=== PATIENT | female | born 1955 | race Caucasian/White ===

== ENCOUNTER → 2016-05-28 | Outpatient (CLI) | payer MEDICARE, OTHER ==
[~2016-05-28] MED LIST: CELE100C PO; DOXE25CA2 PO; PERC5TAB12 PO; SYMB80AE INH; ZOCO40TA PO
[2016-05-28 10:55] LABS: AUTOMATED NEUTROPHIL # 4.5 TH/MM3 (1.8-7.7); BASOPHIL % 0.4 % (0.0-2.0); EOSINOPHIL # 0.1 TH/MM3 (0-0.4); EOSINOPHIL % 1.3 % (0.0-4.0); HEMATOCRIT 40.5 % (35.0-46.0); HEMO FLAGS DIFF FINAL; LYMPH % 25.8 % (9.0-44.0); LYMPHOCYTE # 1.8 TH/MM3 (1.0-4.8); MEAN CELL VOLUME 89.5 FL (80.0-100.0); MEAN CORPUSCULAR HEMOGLOBIN 30.6 PG (27.0-34.0); MEAN CORPUSCULAR HGB CONC 34.2 % (32.0-36.0); NEUT % 64.5 % (16.0-70.0); PLATELET COUNT 229 TH/MM3 (150-450); RED BLOOD COUNT 4.53 MIL/MM3 (4.00-5.30); RED CELL DISTRIBUTION WIDTH 13.3 % (11.6-17.2); WHITE BLOOD COUNT 6.9 TH/MM3 (4.0-11.0)
[2016-05-28 11:24] LABS: ALT (GPT) 18 U/L (10-53); ANION GAP 8 MEQ/L (5-15); AST (GOT) 16 U/L (15-37); BICARBONATE 28.5 MEQ/L (21.0-32.0); BLOOD UREA NITROGEN 10 MG/DL (7-18); CHLORIDE 104 MEQ/L (98-107); GLOMERULAR FILTRATION RATE 77 ML/MIN (>89); GLUCOSE,FASTING 89 MG/DL (74-99); POTASSIUM 4.2 MEQ/L (3.5-5.1); SODIUM (NA) 140 MEQ/L (136-145)
[2016-05-28 11:29] LABS: ALKALINE PHOSPHATASE 71 U/L (45-117); HDL CHOLESTEROL 55.9 MG/DL (40.0-60.0); LDL CHOLESTEROL 98 MG/DL (0-99); TOTAL BILIRUBIN ADULT 0.3 MG/DL (0.2-1.0)
== END ==
LOC: CLAB 10:29
PROVIDERS: ATTEND Family Medicine
DX: E78.5 Hyperlipidemia, unspecified (principal)
CPT/HCPCS: 36415; 80053; 80061; 84443; 85025

== ENCOUNTER → 2017-03-27 | Day surgery (SDC) | payer MEDICARE, MEDICAID ==
--- NOTE | 2017-03-26 10:04 | MH ---
cc: HARDY OLSON M.D. DATE OF ADMISSION 03/27/2017 DATE OF 1955 CHIEF COMPLAINT Dysphagia. HISTORY OF PRESENT ILLNESS This is a 61-year-old female with a history of head and neck cancer post radiation therapy. She has problems with dysphagia and is to undergo esophageal dilation on multiple passes of soft rubber dilators. PAST MEDICAL HISTORY Significant for head and neck cancer. ALLERGIES No known drug allergies. MEDICATIONS Current meds: 1. Oxycodone. 2. Symbicort. PAST SURGICAL HISTORY Hysterectomy PHYSICAL EXAMINATION GENERAL: A well-developed, well-nourished female in no apparent distress. HEENT: Normocephalic, atraumatic. Extraocular motions intact. External ear canals clear. Lips, oral mucosa and oropharynx show no lesion. NECK: No masses. Gland shows no lesion. CHEST: Clear to auscultation. HEART: Regular rate. ABDOMEN: Soft. EXTREMITIES: No lesion. NEUROLOGIC: Nonfocal. ASSESSMENT A 61-year-old female post radiation therapy for head and neck cancer with dysphagia. She is to undergo esophageal dilation with multiple passes of soft rubber dilators. The risks and benefits were discussed with the patient. The risks include but are not limited to those of anesthesia, bleeding, unfavorable scarring, hematoma, abscess, infection, perforation, persistent dysphagia. The patient states she understands and accepts the risks of the procedure. MD IVAN Montana/ELVIA /9:13 AM /9:34 AM
[~2017-03-27] VITALS: Ht 165.1 cm; Wt 67.8 kg
[~2017-03-27] MED LIST changes: +ASPI81TA25 PO; +BUPR150XL PO; -CELE100C PO; +CHLORHEXIDINE GLUCONATE 2 % 1 PACK (2 CLOTHS) TOPICAL PRN; -DOXE25CA2 PO; +FOLI400T PO; +LACTATED RINGER'S 1000 ML IV PRN; +LIDOCAINE HCL 1% PF 5 ML SYRINGE OTHER ONE; +LOSA25TA PO; +METOPROLOL TARTRATE 25 MG TAB PO PRN; +MIRA25TA PO; +OXYC1TAB63 PO; -PERC5TAB12 PO; +POVIDONE IODINE 5% (ANTISEPSIS KIT) 4 APPLICATIONS EACH NARE PRN; +PROPOFOL 200 MG/20 ML AMP IV ONE; +SIMV40TA PO; +SODIUM CHLORID 0.9% 500 ML IV PRN; +SYMB160A INH; -SYMB80AE INH; +VITA200C3 PO; +VITA500S3 SL; +VITACAP7 PO; +XANA1TAB2 PO; -ZOCO40TA PO
[2017-03-27 08:12] LABS: AUTOMATED NEUTROPHIL # 4.5 TH/MM3 (1.8-7.7); BASOPHIL % 0.5 % (0.0-2.0); EOSINOPHIL # 0.1 TH/MM3 (0-0.4); EOSINOPHIL % 1.4 % (0.0-4.0); HEMATOCRIT 40.6 % (35.0-46.0); HEMOGLOBIN 13.6 GM/DL (11.6-15.3); LYMPH % 23.7 % (9.0-44.0); LYMPHOCYTE # 1.6 TH/MM3 (1.0-4.8); MEAN CELL VOLUME 92.4 FL (80.0-100.0); MEAN CORPUSCULAR HGB CONC 33.6 % (32.0-36.0); MEAN PLATELET VOLUME 7.7 FL (7.0-11.0); MONO % 9.6 % (0.0-8.0); MONOCYTE # 0.7 TH/MM3 (0-0.9); NEUT % 64.8 % (16.0-70.0); PLATELET COUNT 225 TH/MM3 (150-450); RED BLOOD COUNT 4.39 MIL/MM3 (4.00-5.30); WHITE BLOOD COUNT 6.9 TH/MM3 (4.0-11.0)
--- NOTE | 2017-03-27 09:24 | EKG ---
Date Performed: 03/27/2017 Time Performed: 08:07:08 PTAGE: 61 years EKG: Sinus rhythm LOW QRS VOLTAGE IN PRECORDIAL LEADS BORDERLINE ECG NO PREVIOUS TRACING DOCTOR: Ernie Salvador Interpretating Date/Time 03/27/2017 09:23:35
--- NOTE | 2017-03-27 10:27 | MP ---
cc: HARDY OLSON DATE OF SURGERY 03/27/2016 DATE OF 1955 INDICATIONS This is a 61-year-old female with a history of neck cancer post radiation treatment has dysphagia. She is to undergo esophageal dilation with soft rubber dilators multiple passes. PREOPERATIVE DIAGNOSIS Dysphagia POSTOPERATIVE DIAGNOSIS Dysphagia PROCEDURE Esophageal dilation, multiple passes soft rubber dilators. SUMMARY The patient brought to the operating room, placed in the supine position, successfully placed under general anesthesia and prepared in the usual fashion for this procedure. The head and neck was palpated. There was no palpable mass. Then with the rubber dilators from 40-50 Israeli in sequence, patient underwent dilation. There was appropriate resistance. There was no bleeding, no evidence of perforation. She tolerated this well. She was awake and taken to recovery in stable condition. MD IVAN Montana/REECE /10:03 AM /10:05 AM
[2017-03-27 10:47] VITALS: BP 137/81; PULSE 70; RESP 18; TEMP 97.6; O2SAT 100
== END | disposition home or self-care (01) ==
LOC: HSDC 07:18
PROVIDERS: ATTEND Specialist
DX: R13.10 Dysphagia, unspecified (principal); I10 Essential (primary) hypertension; J44.9 Chronic obstructive pulmonary disease, unspecified; Z85.818 Personal history of malignant neoplasm of other sites of lip, oral cavity, and pharynx; Z92.3 Personal history of irradiation
CPT/HCPCS: 00320; 43450; 85025; 93005; J7120

== ENCOUNTER 2017-04-27 10:12 | Emergency (ER) | payer MEDICARE, MEDICAID ==
[~2017-04-27 10:12] MED LIST changes: -CHLORHEXIDINE GLUCONATE 2 % 1 PACK (2 CLOTHS) TOPICAL PRN; -LACTATED RINGER'S 1000 ML IV PRN; -LIDOCAINE HCL 1% PF 5 ML SYRINGE OTHER ONE; -METOPROLOL TARTRATE 25 MG TAB PO PRN; -POVIDONE IODINE 5% (ANTISEPSIS KIT) 4 APPLICATIONS EACH NARE PRN; -PROPOFOL 200 MG/20 ML AMP IV ONE; -SODIUM CHLORID 0.9% 500 ML IV PRN
[2017-04-27 10:15] VITALS: BP 182/82; PULSE 91; RESP 16; TEMP 97.9; O2SAT 97
[2017-04-27] MEDS ORDERED: FLUT55AE INH (10:24)
--- NOTE | 2017-04-27 10:27 | PD ---
HPI Chief Complaint: Injury Time Seen by Provider: 10:20 Travel History International Travel<30 days: No Contact w/Intl Traveler<30days: No Traveled to known affect area: No History of Present Illness HPI This is a 61-year-old female who presents to the emergency department with pain in the left ankle following a fall. Patient was doing marching exercises yesterday and her left ankle gave out and she fell on top of it and twisted it. She has moderate severity pain in the left ankle and the left foot, constant with no associated numbness or weakness. Patient denies any other injuries. PFSH Past Medical History Arthritis: Yes Anxiety: Yes Depression: Yes Cancer: Yes (TONSIL CANCER WITH RADIATION) Cardiovascular Problems: Yes (PVD) High Cholesterol: Yes Diabetes: No Diminished Hearing: No Endocrine: No Genitourinary: Yes (FREQUENCY) Hiatal Hernia: No Immune Disorder: No Musculoskeletal: Yes (OA) Neurologic: No Psychiatric: Yes (ANXIETY) Reproductive: No Respiratory: No Immunizations Current: Yes Thyroid Disease: No Menopausal: Yes : 1 Para: 0 Past Surgical History Abdominal Surgery: Yes (APPENDECTOMY) AICD: No Cardiac Surgery: Yes (LEG VEIN STRIPPING) Ear Surgery: No Endocrine Surgery: No Eye Surgery: No Genitourinary Surgery: No Gynecologic Surgery: Yes (HYSTERECTOMY) Hysterectomy: Yes Joint Replacement: No Oral Surgery: No Pacemaker: No Thoracic Surgery: No Social History Alcohol Use: No Tobacco Use: Yes Substance Use: No Allergies-Medications (Allergen,Severity, Reaction): Coded Allergies: No Known Allergies (Unverified Allergy, Unknown, 03/27/17) Reported Meds & Prescriptions Reported Meds & Active Scripts Active Reported [place] Respiclick Inh (Fluticasone Propionate) 55 Mcg/Actuation Aer.pow.ba 55 Mg INH DAILY Folic Acid 0.4 Mg Tab 400 Mcg PO DAILY Vitamin E 200 Unit Cap 200 Units PO DAILY Vitamin B-12 (Cyanocobalamin) 500 Mcg Subl 500 Mcg SL DAILY B Complex (B-Complex Vitamins) 1 Cap 1 Cap PO DAILY Xanax (Alprazolam) 1 Mg Tab 1 Mg PO Q8H PRN Symbicort Inh (Budesonide/Formoterol Fumarate) 160-4.5 Mcg/Act Aero 1 Puff INH Q12HR Aspirin Low Dose (Aspirin) 81 Mg Tabdr 81 Mg PO DAILY Oxycodone-Acetaminophen 5-325 mg Tab 1 Tab PO Q6H PRN Simvastatin 40 Mg Tab 40 Mg PO HS Losartan (Losartan Potassium) 25 Mg Tab 25 Mg PO DAILY Wellbutrin Xl 24 HR (Bupropion HCl) 150 Mg Tab 150 Mg PO TID Myrbetriq (Mirabegron) 25 Mg Tab 25 Mg PO DAILY Review of Systems General / Constitutional: No: Fever, Chills Gastrointestinal: No: Nausea, Vomiting Physical Exam Narrative GENERAL: Well-appearing, no acute distress, nontoxic SKIN: Warm and dry. HEAD: Atraumatic. Normocephalic. ENT: No nasal bleeding or discharge. Moist mucous membranes MUSCULOSKELETAL: Mild effusion involving the left ankle, tender to palpation over the posterior and anterior aspect of the lateral malleolus involving the left ankle. Tender to palpation over the dorsal aspect of the left foot. Vascular: 2+ DP pulse with normal capillary refill in the left foot. NEUROLOGICAL: Awake and alert. No obvious cranial nerve deficits. Motor grossly within normal limits. Normal speech. Sensation to light touch grossly intact in the left foot. PSYCHIATRIC: Appropriate mood and affect; insight and judgment normal. Data Data Last Documented VS Vital Signs Date Time Temp Pulse Resp B/P (MAP) Pulse Ox O2 Delivery O2 Flow Rate FiO2 04/27/17 10:15 97.9 91 16 182/82 (115) 97 Orders Orders Ankle, Complete ([id number]) (04/27/17 ) Foot, Complete ([id number]) (04/27/17 ) [facility] Medical Decision Making Medical Screen Exam Complete: Yes Emergency Medical Condition: Yes Interpretation(s) Last 24 hours Impressions Foot X-Ray 04/27/17 0000 Signed Impressions: Service Date/Time: Thursday, April 27, 2017 10:47 - CONCLUSION: No acute fracture. Charan Cormier MD Ankle X-Ray 04/27/17 0000 Signed Impressions: Service Date/Time: Thursday, April 27, 2017 10:43 - CONCLUSION: No acute fracture. Charan Cormier MD Differential Diagnosis Lateral malleolus fracture, medial malleolus fracture, ankle sprain Narrative Course This is a 61-year-old female who presents to the emergency department having twisted her ankle when she was exercising yesterday. She has an effusion and tenderness involving the left ankle and foot. She has a normal neurovascular exam. X-rays negative for fracture. I suspect the patient has a sprain. She was advised to Moisés wrap, elevate and ice the ankle. She will follow-up with an orthopedist in 1 week if she has not improved. Diagnosis Primary Impression: Ankle sprain Qualified Codes: S93.402A - Sprain of unspecified ligament of left ankle, initial encounter Patient Instructions: General Instructions Additional Instructions: If you develop severe pain in the foot or ankle, numbness, weakness, or coolness of your foot return to the emergency department immediately. - Use crutches as needed and rest your ankle until your pain improves. - Apply ice to your ankle for 20 minutes every 3 hours for the first 2 days. - Use an moisés wrap to minimize swelling. - Keep your ankle elevated when you are resting. - Use ibuprofen as needed for pain. - Gradually start exercises with your ankle, moving it upward, downward and in small circles. Perform 20 clockwise and 20 counterclockwise circles twice daily. Med/Other Pt SpecificInfo: No Change to Meds Disposition: 01 DISCHARGE HOME Condition: Stable Maci Alonso MD Apr 27, 2017 10:27
--- NOTE | 2017-04-27 10:59 | RADRPT ---
EXAM DATE/TIME: 04/27/2017 10:43 [facility] COMPARISON: No previous studies available for comparison. INDICATIONS : Left ankle pain post fall today MEDICAL HISTORY : None. SURGICAL HISTORY : None. ENCOUNTER: Initial ACUITY: 1 day PAIN SCORE: 8/10 LOCATION: Left lateral ankle FINDINGS: Three view exam was performed of the left ankle. The bony structures are in normal alignment. No ev idence of fracture, dislocation, or soft tissue swelling. The ankle mortise is intact. No radiopaqu e foreign bodies are seen. Bony mineralization is normal. CONCLUSION: No acute fracture. Charan Cormier MD on April 27, 2017 at 10:56 Board Certified Radiologist. This report was verified electronically.
--- NOTE | 2017-04-27 10:59 | RADRPT ---
EXAM DATE/TIME: 04/27/2017 10:47 [facility] COMPARISON: No previous studies available for comparison. INDICATIONS : Left foot pain post fall today MEDICAL HISTORY : None. SURGICAL HISTORY : None. ENCOUNTER: Initial ACUITY: 1 day PAIN SCORE: 8/10 LOCATION: Left lateral foot FINDINGS: Three view examination of the left foot demonstrates no soft tissue swelling, dislocation, or fractur e. The tarsal bones appear intact. The interphalangeal and metatarsophalangeal joints are intact. The calcaneus is intact. Bony mineralization is normal. CONCLUSION: No acute fracture. Charan Cormier MD on April 27, 2017 at 10:56 Board Certified Radiologist. This report was verified electronically.
== END 2017-04-27 11:55 | disposition home or self-care (01) ==
LOC: NEPD 10:12
DX: S93.402A Sprain of unspecified ligament of left ankle, initial encounter (principal); W19.XXXA Unspecified fall, initial encounter; Y93.01 Activity, walking, marching and hiking; E78.00 Pure hypercholesterolemia, unspecified; F32.9 Major depressive disorder, single episode, unspecified; F41.9 Anxiety disorder, unspecified; I73.9 Peripheral vascular disease, unspecified; M19.90 Unspecified osteoarthritis, unspecified site; Z72.0 Tobacco use
CPT/HCPCS: 73610; 73630; 99283